=== PATIENT | male | born 1950 | race Caucasian/White ===

== ENCOUNTER 2016-10-18 15:54 | Emergency (ER) | payer MEDICARE, MEDICAID ==
[~2016-10-18] VITALS: Ht 142.2 cm; Wt 60.0 kg
[~2016-10-18 15:54] MED LIST: ACET-2178 PO; AMLO2.5T45 PO; ASPI-1160 PO; ATOR10TA PO; Blood Sugar Diagnostic TEST; CLON0.1T PO; CLON0.2T PO; COR6 PO; DIPH25CA83 PO; EPO10 SUBCUT; HYDR-4134 PO; KEPP500 PO; LEVVL SUBCUT; LOSA50TA3 PO; LOV40 SQ; MYL30 PO; vancomycin IV
[2016-10-18 17:42] LABS: AMMONIA 20 uMol/L (<32)
[2016-10-18 17:43] LABS: HEMOGLOBIN. 8.7 g/dL (14.0-18.0); MEAN CORPUSCULAR VOLUME 89.5 fL (80.0-94.0); MEAN PLATELET VOLUME 8.5 fl (7.4-10.4); PLATELET 173 x1000/uL (130-400); RED BLOOD CELL COUNT 3.01 mill/uL (4.7-6.1); RED CELL DISTRIBUTION WIDTH 15.5 % (11.6-14.6)
[2016-10-18 17:45] LABS: CARBON DIOXIDE 25 mEq/L (21-32); CHLORIDE 105 mEq/L (98-107); ETHANOL BLOOD < 10 mg/dL
[2016-10-18] MEDS ORDERED: ONDANSETRON HCL 4MG/2ML VIAL IV ONE (17:45)
[2016-10-18] MEDS ORDERED: MORPHINE SULFATE 4 MG/ML CPJ (NOT FOR IM USE) IV ONE (17:45)
[2016-10-18 18:43] LABS: PLATELET ESTIMATE NORMAL
[2016-10-18 21:49] VITALS: BP 150/69
[2016-10-23] MEDS ORDERED: LEVVL SUBCUT (19:08)
== END 2016-10-18 22:03 ==
LOC: ER 15:57 → CANBEDREQ 20:53 → ER 22:03
DX: N17.9 Acute kidney failure, unspecified (principal); R41.0 Disorientation, unspecified; I12.0 Hypertensive chronic kidney disease with stage 5 chronic kidney disease or end stage renal disease; D63.1 Anemia in chronic kidney disease; J44.9 Chronic obstructive pulmonary disease, unspecified; E78.00 Pure hypercholesterolemia, unspecified; F03.90 Unspecified dementia, unspecified severity, without behavioral disturbance, psychotic disturbance, mood disturbance, and anxiety; E10.22 Type 1 diabetes mellitus with diabetic chronic kidney disease; N18.6 End stage renal disease; I25.2 Old myocardial infarction; G40.909 Epilepsy, unspecified, not intractable, without status epilepticus; Z86.19 Personal history of other infectious and parasitic diseases; Z89.611 Acquired absence of right leg above knee; Z89.612 Acquired absence of left leg above knee; Z99.2 Dependence on renal dialysis; Z79.4 Long term (current) use of insulin
CPT/HCPCS: 36415; 70450; 80053; 82140; 82962; 83605; 83880; 84484; 85025; 93005; 99285; G0482

== ENCOUNTER 2016-10-20 14:38 | Inpatient (IN) | payer MEDICARE, MEDICAID ==
[~2016-10-20] VITALS: Ht 160 cm; Wt 55.8 kg
[2016-10-20 15:50] LABS: BASOPHILS % 0.3 % (0.0-2.0); EOSINOPHILS % 0.2 % (0.0-5.0); HEMATOCRIT. 27.9 % (42.0-52.0); HEMOGLOBIN. 8.9 g/dL (14.0-18.0); LYMPHOCYTES % 8.9 % (20.0-50.0); MEAN CORPUSCULAR HEMOGLOBIN 28.7 pg (28.0-32.0); MEAN PLATELET VOLUME 8.5 fl (7.4-10.4); MONOCYTES % 6.3 % (2.0-8.0); NEUTROPHILS % 84.3 % (40.0-76.0); PLATELET 181 x1000/uL (130-400); RED CELL DISTRIBUTION WIDTH 15.4 % (11.6-14.6)
[2016-10-20 15:53] LABS: INR 1.1; PARTIAL THROMBOPLASTIN TIME 30.2 sec (24.0-34.0); PROTHROMBIN TIME 11.6 sec
[2016-10-20 15:58] LABS: AMMONIA < 10 uMol/L (<32)
[2016-10-20 16:02] LABS: TROPONIN I 0.07 ng/mL (0.00-0.04)
[2016-10-20 17:08] LABS: CLARITY URINE CLEAR (CLEAR); COLOR URINE YELLOW (YELLOW); GLUCOSE URINE NEGATIVE (NEGATIVE); KETONES URINE NEGATIVE (NEGATIVE); LEUKOCYTE ESTERASE URINE TRACE (NEGATIVE); NITRITE URINE NEGATIVE (NEGATIVE); OCCULT BLOOD URINE NEGATIVE (NEGATIVE); PROTEIN URINE 2+ (NEGATIVE); SPECIFIC GRAVITY URINE 1.015 (1.005-1.030); UROBILINOGEN URINE 0.2 E.U./dL (0.2-1.0)
[2016-10-20] MEDS ORDERED: LEVOFLOXACIN 500MG PREMIX 100 ML IV ONE (17:15)
[2016-10-20] MEDS ORDERED: TRAMADOL 50MG TABLET PO ONE (20:00)
[2016-10-21 02:20] VITALS: BP 126/64
[2016-10-21] MEDS ORDERED: MAGNESIUM/ALUMINUM HYDROXIDE/SIMETHICONE 30ML UDC PO SCH (03:30)
[2016-10-21] MEDS ORDERED: ACETAMINOPHEN 325MG TABLET PO PRN ×2 (03:30→19:00)
[2016-10-21] MEDS ORDERED: DIPHENHYDRAMINE 25MG CAPSULE PO PRN ×2 (03:30→19:00)
[2016-10-21] MEDS ORDERED: NA PHOS,M-B/NA PHOS,DI-BA ENEMA 118ML PR PRN ×3 (03:30→19:00)
[2016-10-21] MEDS ORDERED: CLONIDINE 0.1MG TABLET PO PRN ×3 (03:30→19:00)
[2016-10-21 05:00] VITALS: BP 129/80
[2016-10-21] MEDS: HYDRALAZINE HCL 25MG TABLET PO SCH ×3 (06:00→22:00)
[2016-10-21] MEDS: BLOOD SUGAR DIAGNOSTIC STRIP TEST SCH ×4 (06:42→21:10)
[2016-10-21] MEDS: INSULIN LISPRO 100 UNITS/ML SUBCUT SCH ×4 (06:44→21:00)
[2016-10-21] MEDS ORDERED: LORAZEPAM 2MG/ML CPJ IM PRN (07:45)
[2016-10-21 08:00] VITALS: BP 102/63
[2016-10-21] MEDS: CLONIDINE 0.2MG TABLET PO SCH ×3 (09:00→17:00)
[2016-10-21] MEDS: LOSARTAN POTASSIUM 50 MG TABLET PO SCH (09:00)
[2016-10-21] MEDS ORDERED: ENOXAPARIN 40MG/0.4ML SYR SUBCUT SCH (09:00)
[2016-10-21] MEDS: AMLODIPINE 5MG TABLET PO SCH (09:00)
[2016-10-21] MEDS: LEVETIRACETAM 500MG TABLET PO SCH ×2 (09:29→21:09)
[2016-10-21] MEDS: CARVEDILOL 6.25 MG TABLET PO SCH ×2 (09:30→21:00)
[2016-10-21] MEDS: ASPIRIN 81MG TABLET PO SCH (09:31)
[2016-10-21] MEDS: INSULIN DETEMIR UD 100 UNITS/ML SYR SUBCUT SCH (09:32)
[2016-10-21 11:50] VITALS: BP 101/78
[2016-10-21 16:00] VITALS: BP 95/42
[2016-10-21] MEDS ORDERED: MAGNESIUM/ALUMINUM HYDROXIDE/SIMETHICONE 30ML UDC PO PRN ×2 (16:45→19:00)
[2016-10-21] MEDS ORDERED: DIPHENHYDRAMINE 50MG/ML VIAL IV PRN (19:00)
[2016-10-21] MEDS ORDERED: GUAIFENESIN 200MG/10ML SUGAR FREE UDC PO PRN (19:00)
[2016-10-21] MEDS ORDERED: HYDROCODONE/ACETAMINOPHEN 5/325MG TABLET PO PRN (19:00)
[2016-10-21] MEDS ORDERED: DEXTROSE 50% WATER 50ML SYRINGE IV PRN (19:00)
[2016-10-21] MEDS ORDERED: ONDANSETRON HCL 4MG/2ML VIAL IV PRN (19:00)
[2016-10-21] MEDS ORDERED: ACETAMINOPHEN 650MG SUPP PR PRN (19:00)
[2016-10-21] MEDS ORDERED: ACETAMINOPHEN 650MG/20.3ML UDC GT PRN (19:00)
[2016-10-21] MEDS ORDERED: DOCUSATE SODIUM 100MG CAPSULE PO PRN (19:00)
[2016-10-21 20:00] VITALS: BP 113/46
[2016-10-21 20:30] LABS: BASOPHILS % 0.4 % (0.0-2.0); EOSINOPHILS % 0.7 % (0.0-5.0); HEMATOCRIT. 26.4 % (42.0-52.0); HEMOGLOBIN. 8.4 g/dL (14.0-18.0); MEAN CORPUSCULAR HEMOGLOBIN 28.5 pg (28.0-32.0); MEAN CORPUSCULAR VOLUME 89.3 fL (80.0-94.0); MEAN PLATELET VOLUME 8.6 fl (7.4-10.4); MONOCYTES % 6.9 % (2.0-8.0); PLATELET 188 x1000/uL (130-400); RED BLOOD CELL COUNT 2.96 mill/uL (4.7-6.1); RED CELL DISTRIBUTION WIDTH 15.5 % (11.6-14.6)
[2016-10-21 20:46] LABS: CARBON DIOXIDE 29 mEq/L (21-32); CHLORIDE 102 mEq/L (98-107)
[2016-10-21] MEDS ORDERED: BLOOD SUGAR DIAGNOSTIC STRIP TEST SCH (21:00)
[2016-10-21] MEDS ORDERED: EPOETIN ALFA 10000UNITS/ML VIAL SUBCUT SCH (21:00)
[2016-10-21] MEDS: ATORVASTATIN CALCIUM 10MG TABLET PO SCH (21:09)
[2016-10-22] VITALS: BP 110/58
[2016-10-22 04:00] VITALS: BP 126/82
[2016-10-22] MEDS: HYDRALAZINE HCL 25MG TABLET PO SCH ×3 (06:48→22:00)
[2016-10-22] MEDS: DEXTROSE 50% WATER 50ML SYRINGE IV PRN (07:31)
[2016-10-22] MEDS: INSULIN LISPRO 100 UNITS/ML SUBCUT SCH ×4 (07:40→20:03)
[2016-10-22] MEDS: BLOOD SUGAR DIAGNOSTIC STRIP TEST SCH ×4 (07:42→20:03)
[2016-10-22 08:00] VITALS: BP 123/72
[2016-10-22] MEDS: LEVETIRACETAM 500MG TABLET PO SCH ×2 (09:28→21:24)
[2016-10-22] MEDS: ASPIRIN 81MG TABLET PO SCH (09:28)
[2016-10-22] MEDS: AMLODIPINE 5MG TABLET PO SCH (09:28)
[2016-10-22] MEDS: CARVEDILOL 6.25 MG TABLET PO SCH ×2 (09:28→21:25)
[2016-10-22] MEDS: LOSARTAN POTASSIUM 50 MG TABLET PO SCH (09:28)
[2016-10-22] MEDS: CLONIDINE 0.2MG TABLET PO SCH ×3 (09:35→16:43)
[2016-10-22] MEDS: ENOXAPARIN 30MG/0.3ML SYR SUBCUT SCH (09:36)
[2016-10-22] MEDS: INSULIN DETEMIR UD 100 UNITS/ML SYR SUBCUT SCH (09:37)
[2016-10-22 12:00] VITALS: BP 120/48
[2016-10-22 16:00] VITALS: BP 98/56
[2016-10-22 20:00] VITALS: BP 115/48
[2016-10-22] MEDS: ATORVASTATIN CALCIUM 10MG TABLET PO SCH (21:25)
[2016-10-22 21:27] LABS: BASOPHILS % 0.3 % (0.0-2.0); EOSINOPHILS % 0.5 % (0.0-5.0); HEMATOCRIT. 25.5 % (42.0-52.0); HEMOGLOBIN. 8.3 g/dL (14.0-18.0); LYMPHOCYTES % 13.5 % (20.0-50.0); MEAN CORPUSCULAR HEMOGLOBIN 29.2 pg (28.0-32.0); MEAN CORPUSCULAR VOLUME 90.3 fL (80.0-94.0); MEAN PLATELET VOLUME 8.7 fl (7.4-10.4); MONOCYTES % 6.3 % (2.0-8.0); NEUTROPHILS % 79.4 % (40.0-76.0); PLATELET 166 x1000/uL (130-400); RED BLOOD CELL COUNT 2.83 mill/uL (4.7-6.1); RED CELL DISTRIBUTION WIDTH 15.6 % (11.6-14.6)
[2016-10-22 21:37] LABS: CARBON DIOXIDE 28 mEq/L (21-32); CHLORIDE 101 mEq/L (98-107); PHOSPHORUS 3.8 mg/dL (2.5-4.9)
[2016-10-23] VITALS (12 sets, daily range): BP systolic 108–194; BP diastolic 44–89
[2016-10-23] MEDS: DEXTROSE 50% WATER 50ML SYRINGE IV PRN ×2 (00:09→04:18)
[2016-10-23] MEDS: HYDRALAZINE HCL 25MG TABLET PO SCH ×3 (05:26→21:22)
[2016-10-23] MEDS: INSULIN LISPRO 100 UNITS/ML SUBCUT SCH ×4 (06:18→21:25)
[2016-10-23] MEDS: BLOOD SUGAR DIAGNOSTIC STRIP TEST SCH ×4 (06:18→20:43)
[2016-10-23] MEDS: CLONIDINE 0.2MG TABLET PO SCH ×3 (08:33→16:04)
[2016-10-23] MEDS: AMLODIPINE 5MG TABLET PO SCH (08:34)
[2016-10-23] MEDS: CARVEDILOL 6.25 MG TABLET PO SCH ×2 (08:34→21:23)
[2016-10-23] MEDS: LOSARTAN POTASSIUM 50 MG TABLET PO SCH (08:34)
[2016-10-23] MEDS: ASPIRIN 81MG TABLET PO SCH (08:40)
[2016-10-23] MEDS: ENOXAPARIN 30MG/0.3ML SYR SUBCUT SCH (08:41)
[2016-10-23] MEDS: LEVETIRACETAM 500MG TABLET PO SCH ×2 (08:41→21:23)
[2016-10-23] MEDS: INSULIN DETEMIR UD 100 UNITS/ML SYR SUBCUT SCH (09:04)
[2016-10-23] MEDS: CALCIUM ACETATE 667MG CAPSULE PO SCH ×2 (13:11→17:37)
[2016-10-23] MEDS ORDERED: LEVVL SUBCUT (19:08)
[2016-10-23] MEDS ORDERED: EPOETIN ALFA 10000UNITS/ML VIAL SUBCUT NR (21:00)
[2016-10-23 21:20] LABS: BASOPHILS % 0.2 % (0.0-2.0); EOSINOPHILS % 0.2 % (0.0-5.0); HEMOGLOBIN. 9.9 g/dL (14.0-18.0); MEAN CORPUSCULAR HEMOGLOBIN 29.7 pg (28.0-32.0); MEAN CORPUSCULAR VOLUME 89.7 fL (80.0-94.0); MEAN PLATELET VOLUME 8.6 fl (7.4-10.4); MONOCYTES % 7.1 % (2.0-8.0); NEUTROPHILS % 80.5 % (40.0-76.0); PLATELET 156 x1000/uL (130-400); RED BLOOD CELL COUNT 3.35 mill/uL (4.7-6.1); RED CELL DISTRIBUTION WIDTH 15.4 % (11.6-14.6)
[2016-10-23] MEDS: ATORVASTATIN CALCIUM 10MG TABLET PO SCH (21:23)
[2016-10-24] VITALS (7 sets, daily range): BP systolic 110–160; BP diastolic 56–82
[2016-10-24] MEDS: BLOOD SUGAR DIAGNOSTIC STRIP TEST SCH ×2 (05:47→11:18)
[2016-10-24] MEDS: HYDRALAZINE HCL 25MG TABLET PO SCH ×2 (06:06→13:14)
[2016-10-24] MEDS: INSULIN LISPRO 100 UNITS/ML SUBCUT SCH ×2 (06:06→13:15)
[2016-10-24] MEDS: ENOXAPARIN 30MG/0.3ML SYR SUBCUT SCH (08:33)
[2016-10-24] MEDS: CALCIUM ACETATE 667MG CAPSULE PO SCH ×2 (08:34→11:14)
[2016-10-24] MEDS: LEVETIRACETAM 500MG TABLET PO SCH (08:35)
[2016-10-24] MEDS: ASPIRIN 81MG TABLET PO SCH (08:35)
[2016-10-24] MEDS: AMLODIPINE 5MG TABLET PO SCH (08:40)
[2016-10-24] MEDS: CARVEDILOL 6.25 MG TABLET PO SCH (08:40)
[2016-10-24] MEDS: LOSARTAN POTASSIUM 50 MG TABLET PO SCH (08:40)
[2016-10-24] MEDS: CLONIDINE 0.2MG TABLET PO SCH ×3 (08:40→16:01)
[2016-10-24] MEDS ORDERED: FOLIC ACID/VITAMIN B COMP W-C TABLET PO SCH (09:00)
[2016-10-24] MEDS: INSULIN DETEMIR UD 100 UNITS/ML SYR SUBCUT SCH (10:31)
== END 2016-10-24 16:30 | DRG 70 ==
LOC: ER 14:39 → 8WST 18:22 → EDBEDREQ 18:36 → ENRESERV 21:04
PROVIDERS: ADMIT Family Medicine; ATTEND Family Medicine
PROC: 5A1D00Z (ICD-10-PCS; principal; 2016-10-22)
DX: G93.41 Metabolic encephalopathy (principal); I50.43 Acute on chronic combined systolic (congestive) and diastolic (congestive) heart failure; J18.9 Pneumonia, unspecified organism; N18.6 End stage renal disease; I13.2 Hypertensive heart and chronic kidney disease with heart failure and with stage 5 chronic kidney disease, or end stage renal disease; J44.0 Chronic obstructive pulmonary disease with (acute) lower respiratory infection; N39.0 Urinary tract infection, site not specified; E44.0 Moderate protein-calorie malnutrition; Z99.2 Dependence on renal dialysis; E11.22 Type 2 diabetes mellitus with diabetic chronic kidney disease; I73.9 Peripheral vascular disease, unspecified; D63.8 Anemia in other chronic diseases classified elsewhere; F03.90 Unspecified dementia, unspecified severity, without behavioral disturbance, psychotic disturbance, mood disturbance, and anxiety; W07.XXXA Fall from chair, initial encounter; E11.51 Type 2 diabetes mellitus with diabetic peripheral angiopathy without gangrene; K75.9 Inflammatory liver disease, unspecified; G40.909 Epilepsy, unspecified, not intractable, without status epilepticus; E78.00 Pure hypercholesterolemia, unspecified; E78.5 Hyperlipidemia, unspecified; I25.10 Atherosclerotic heart disease of native coronary artery without angina pectoris; I25.2 Old myocardial infarction; Z66 Do not resuscitate; Z79.899 Other long term (current) drug therapy; Z95.1 Presence of aortocoronary bypass graft; Z68.21 Body mass index [BMI] 21.0-21.9, adult; Z79.82 Long term (current) use of aspirin; Y93.89 Activity, other specified; Y92.89 Other specified places as the place of occurrence of the external cause; Y99.8 Other external cause status; Z89.512 Acquired absence of left leg below knee; Z89.511 Acquired absence of right leg below knee; Z89.612 Acquired absence of left leg above knee; Z89.611 Acquired absence of right leg above knee
CPT/HCPCS: 36415; 36556; 70450; 71010; 72125; 72170; 80048; 80053; 81001; 82140; 82962; 83605; 83735; 83880; 84100; 84484; 85025; 85610; 85730; 86850; 86900; 86920; 87040; 87086; 93005; 96365; 97162; 97166; 99285; A6261; C1893; J0885; J1650; J1815; J1956; J7030; J7040; P9016